=== PATIENT | female | born 1965 | race Caucasian/White ===

== ENCOUNTER 2016-06-16 14:53 | Emergency (ER) | payer SELFPAY ==
--- NOTE | 2016-06-16 15:08 | ER Document Report ---
ED Medical Screen (RME) - General Chief Complaint: Fall Injury Stated Complaint: FALL/BACK PAIN Mode of Arrival: Wheelchair Information source: Patient Notes: She presents to the emergency department for swelling of the six-foot ladder. She reports she fell from the top onto wooden floor. She denies change in LOC. She complains of headache elbow and back pain. I have greeted and performed a rapid initial assessment of this patient. A comprehensive ED assessment and evaluation of the patient, analysis of test results and completion of the medical decision making process will be conducted by additional ED providers. TRAVEL OUTSIDE OF THE [place] IN LAST 30 DAYS: No Past Medical History - Social History Chew tobacco use (# tins/day): No Frequency of alcohol use: Rare Drug Abuse: None Renal/ Medical History: Denies: Hx Peritoneal Dialysis Physical Exam - Vital signs Vitals: Temp Pulse Resp BP Pulse Ox 97.9 F 79 18 122/75 98 06/16/16 14:58 06/16/16 14:58 06/16/16 14:58 06/16/16 14:58 06/16/16 14:58 Course - Vital Signs Vital signs: Temp Pulse Resp BP Pulse Ox 97.9 F 79 18 122/75 98 06/16/16 14:58 06/16/16 14:58 06/16/16 14:58 06/16/16 14:58 06/16/16 14:58
[2016-06-16] MEDS ORDERED: FENTANYL CITRATE INJ/PF 100 MCG/2 ML AMPUL IV ONE (15:24)
[2016-06-16] MEDS ORDERED: ONDANSETRON HCL INJ/PF 4 MG/2 ML SDV IV ONE ×3 (15:24→18:15)
--- NOTE | 2016-06-16 15:30 | ER Document Report ---
ED Fall - General Chief Complaint: Fall Injury Stated Complaint: FALL/BACK PAIN Mode of Arrival: Wheelchair Information source: Patient, Relative TRAVEL OUTSIDE OF THE [place] IN LAST 30 DAYS: No - HPI Occurred: Just prior to arrival Where: Home Context: Fell from height - 6 FT. STEPLADDER Associated symptoms: Dazed/confused, Seizure - OBSERVED BY E.D. STAFF AFTER ARRIVAL TO E.D., Difficulty walking - WAS DONALDO TO AMBULATE INTO HOUSE, AND LATER FROM HOUSE TO CAR (WITH ASSISTANCE) ENROUTE TO E.D.. denies: Lost consciousness Location of injury/pain: Back - LOWER, Head, Upper extremity - RIGHT Quality of pain: Sharp Severity: Severe Prehospital interventions: Other - TO E.D. VIA P.O.V. - Related data Allergies/Adverse Reactions: adhesive Allergy (Verified 06/16/16 15:07) Past Medical History - General Information source: Patient - Social History Smoking Status: Never Smoker Chew tobacco use (# tins/day): No Frequency of alcohol use: Rare Drug Abuse: None Lives with: Spouse/Significant other Family History: Reviewed & Not Pertinent Patient has suicidal ideation: No Patient has homicidal ideation: No - Past Medical History Cardiac Medical History: Reports: None Pulmonary Medical History: Reports: None EENT Medical History: Reports: None Neurological Medical History: Reports: None. Denies: Hx Cerebrovascular Accident, Hx Seizures Endocrine Medical History: Reports: None Renal/ Medical History: Reports: None Malignancy Medical History: Reports: None GI Medical History: Reports: None Musculoskeltal Medical History: Reports None Psychiatric Medical History: Reports: None Traumatic Medical History: Reports: None Review of Systems - Review of Systems Constitutional: No symptoms reported EENT: No symptoms reported Cardiovascular: No symptoms reported Respiratory: No symptoms reported Gastrointestinal: No symptoms reported Musculoskeletal: See HPI Skin: No symptoms reported Neurological/Psychological: See HPI Physical Exam - Vital signs Vitals: Temp Pulse Resp BP Pulse Ox 97.9 F 79 18 122/75 98 06/16/16 14:58 06/16/16 14:58 06/16/16 14:58 06/16/16 14:58 06/16/16 14:58 Interpretation: Normal. No: Tachycardic, Tachypneic - General General appearance: Lethargic - MILDLY, AFTER SEIZURE ACTIVITY In distress: None - HEENT Head: Normocephalic Eyes: Normal Conjunctiva: Normal Ears: Normal Nasal: Normal Mouth/Lips: Normal Mucous membranes: Normal Pharynx: Normal Neck: Normal - Respiratory Respiratory status: No respiratory distress Breath sounds: Normal - Cardiovascular Rhythm: Regular Heart sounds: Normal auscultation Murmur: No - Abdominal Inspection: Normal Bowel sounds: Hypoactive Tenderness: Nontender - Back Back: Tender - BILATERAL PARASPINOUS MUSCLES, L2 THRU S1. No: Vertebra tenderness, Wounds - Extremities General upper extremity: Normal inspection General lower extremity: Normal inspection - Neurological Neuro grossly intact: Yes Cognition: Normal Orientation: AAOx4 - Psychological Associated symptoms: Normal affect, Normal mood - Skin Skin Temperature: Warm Skin Moisture: Dry Skin Color: Normal Skin Turgor: Elastic Course - Re-evaluation Re-evalutation: 06/16/16 20:22 Patient states she is improved. Ambulated to the restroom and back with minimal assistance. Results of imaging studies discussed with patient and family. - Vital Signs Vital signs: Temp Pulse Resp BP Pulse Ox 98.1 F 65 16 118/78 97 06/16/16 19:28 06/16/16 19:28 06/16/16 19:28 06/16/16 19:28 06/16/16 19:28 - Laboratory Result Diagrams: 06/16/16 16:33 06/16/16 16:33 Laboratory results interpreted by me: 06/16/16 16:33 Potassium 3.5 L Total Protein 6.2 L Albumin 3.4 L - Diagnostic Test Radiology reviewed: Image reviewed, Reports reviewed Discharge - Discharge Clinical Impression: Low back strain Qualifiers: Encounter type: initial encounter Qualified Code(s): S39.012A - Strain of muscle, fascia and tendon of lower back, initial encounter Fall from ladder Qualifiers: Encounter type: initial encounter Qualified Code(s): W11.XXXA - Fall on and from ladder, initial encounter Concussion Qualifiers: Encounter type: initial encounter Loss of consciousness presence/duration: without LOC Qualified Code(s): S06.0X0A - Concussion without loss of consciousness, initial encounter Condition: Stable Disposition: HOME, SELF-CARE Instructions: Concussion ([facility]), Low Back Pain ([facility]), Muscle Strain ([facility]), Muscle Relaxers ([facility]), Oral Narcotic Medication ([facility]), Antinausea Medication ( [facility]), Ice Packs ([facility]) Additional Instructions: REST, AVOID PAINFUL ACTIVITY. ICE PACKS TO PAINFUL AREAS TO REDUCE PAIN & SWELLING. MEDS DIRECTED. RETURN FOR RE-EVALUATION IF NOT IMPROVING IN 48 HOURS, OR SOONER IF ANY NEW OR WORRISOME SYMPTOMS. Prescriptions: Hydrocodone/Acetaminophen [Patton 5-325 mg Tablet] 1 tab PO Q4HP PRN #14 tablet PRN Reason: For Pain Diazepam [Valium 5 Mg Tablet] 5 mg PO Q8HP PRN #10 tablet PRN Reason: FOR MUSCLE RELAXATION Ondansetron [Zofran Odt 4 mg Tablet] 1 - 2 tab PO Q4H #10 tab.robert Referrals: ELISA GROSS PA-C [Primary Care Provider] - Follow up as needed
[2016-06-16 17:03] LABS: ABSOLUTE BASOPHILS # (AUTO) 0.1 10^3/uL (0.0-0.2); ABSOLUTE EOSINOPHILS # (AUTO) 0.1 10^3/uL (0.0-0.6); ABSOLUTE LYMPHOCYTES (AUTO) 1.6 10^3/uL (0.5-4.7); ABSOLUTE MONOCYTES (AUTO) 0.9 10^3/uL (0.1-1.4); ABSOLUTE NEUT (AUTO) 7.9 10^3/uL (1.7-8.2); BASOPHILS % (AUTO) 0.5 % (0-2); EOSINOPHILS % (AUTO) 1.1 % (0-6); HEMOGLOBIN 13.1 g/dL (12.0-15.5); HGB HCT DIFFERENCE 0.3; LYMPHOCYTES % (AUTO) 14.8 % (13-45); MEAN CORPUSCULAR HEMOGLOBIN 28.3 pg (27.0-33.4); MEAN CORPUSCULAR HGB CONC 33.5 g/dL (32.0-36.0); MEAN CORPUSCULAR VOLUME 85 fl (80-97); MONOCYTES % (AUTO) 8.2 % (3-13); RED BLOOD COUNT 4.61 10^6/uL (3.72-5.28); SEGMENTED NEUTROPHILS % (AUTO) 75.4 % (42-78); WHITE BLOOD COUNT 10.5 10^3/uL (4.0-10.5)
[2016-06-16 17:18] LABS: ALANINE AMINOTRANSFERASE 26 U/L (9-52); ALBUMIN 3.4 g/dL (3.5-5.0); ALKALINE PHOSPHATASE 83 U/L (38-126); ANION GAP 9 (5-19); ASPARTATE AMINO TRANSFERASE 22 U/L (14-36); BILIRUBIN,TOTAL 0.3 mg/dL (0.2-1.3); BLOOD UREA NITROGEN 15 mg/dL (7-20); CALCIUM 8.9 mg/dL (8.4-10.2); CARBON DIOXIDE 29 mmol/L (22-30); CHLORIDE 102 mmol/L (98-107); CREATININE RESULT 0.73 mg/dL (0.52-1.25); GLUCOSE 93 mg/dL (75-110); POTASSIUM 3.5 mmol/L (3.6-5.0); SODIUM 139.7 mmol/L (137-145); TOTAL PROTEIN 6.2 g/dL (6.3-8.2)
[2016-06-16 19:46] VITALS: BP 118/78
[2016-06-16 20:41] LABS: APPEARANCE,URINE CLEAR; BILIRUBIN,URINE NEGATIVE (NEGATIVE); GLUCOSE, URINE NEGATIVE (NEGATIVE); KETONES,URINE 20 mg/dL (NEGATIVE); LEUKOCYTE ESTERASE,URINE NEGATIVE (NEGATIVE); NITRITE,URINE NEGATIVE (NEGATIVE); PROTEIN,URINE NEGATIVE (NEGATIVE); UROBILINOGEN,URINE NEGATIVE mg/dL (<2.0)
[2016-06-16] MEDS ORDERED: HYDROCODONE/ACETAMINOPHEN 5-325 MG 6 TAB/DSPK PO PRN (20:48)
[2016-06-16] MEDS ORDERED: ONDANSETRON ODT 4 MG TAB (6 TAB/DSPK) PO PRN (20:48)
[2016-06-16] MEDS ORDERED: DIAZEPAM 5 MG TABLET PO ONE (20:48)
== END 2016-06-16 21:00 | disposition home or self-care (01) ==
LOC: ER 14:53
DX: S06.0X0A Concussion without loss of consciousness, initial encounter (principal); S39.012A Strain of muscle, fascia and tendon of lower back, initial encounter; W11.XXXA Fall on and from ladder, initial encounter; Y92.009 Unspecified place in unspecified non-institutional (private) residence as the place of occurrence of the external cause; R53.83 Other fatigue; R26.2 Difficulty in walking, not elsewhere classified; M25.521 Pain in right elbow; R51 Headache
CPT/HCPCS: 96376; 99284; 96374; 36415; 83690; 85025; 80053; 81001; 73080; 72110; 70450; 72125; 74177; J3010; J2405